=== PATIENT | female | born 2000 | race Caucasian/White ===

== ENCOUNTER 2022-11-19 15:17 | Outpatient (CLI) | payer OTHER, SELFPAY ==
[2022-11-19 23:35] LABS: Chlamydia DNA Amplified* NOT DETECTED (No Detected); GC DNA Amplified* NOT DETECTED (No Detected)
== END 2022-11-19 15:18 | disposition home or self-care (01) ==
PROVIDERS: PCP Physician Assistant Medical; Visit Provider Obstetrics & Gynecology
DX: Z01.419 Encounter for gynecological examination (general) (routine) without abnormal findings (principal); Z11.3 Encounter for screening for infections with a predominantly sexual mode of transmission; E53.8 Deficiency of other specified B group vitamins; R79.89 Other specified abnormal findings of blood chemistry; N94.6 Dysmenorrhea, unspecified; F41.9 Anxiety disorder, unspecified
CPT/HCPCS: 82306; 82607; 82652; 87491; 87591